=== PATIENT | female | born 2000 | race Caucasian/White ===

== ENCOUNTER 2024-03-12 19:18 | Emergency (ER) | payer MEDICAID, SELFPAY ==
[2024-03-12 19:19] VITALS: BP 122/74; PULSE 62; RESP 10; TEMP 36.1; O2SAT 100; BMI 22.0
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
--- NOTE | 2024-03-12 19:20 | CT_ITS ---
STUDY: CT CERVICAL SPINE WITHOUT CONTRAST REASON FOR EXAM: Female, 23 years old. Trauma RADIATION DOSAGE (If Supplied By Facility): CTDIvol = ( 13.41 ) mGy, DLP = ( 263.76 ) mGycm TECHNIQUE: High resolution transaxial imaging was performed without contrast material. Sagittal and coronal images were reconstructed. Individualized dose optimization techniques were used for this CT. COMPARISON: None FINDINGS: Exam is markedly limited by patient motion. Fractures cannot be excluded especially through C2. Malalignment is not excluded especially at C5-C6. Facet joints grossly intact at all levels. Normal curvature. Grossly intact craniocervical junction and C1-C2 articulation. No definite acute abnormality of the soft tissues. CT/Spine Cervical without Contras IMPRESSION: Markedly limited by patient motion. Neither fractures nor malalignment are excluded. Recommend repeat when patient can remain still. Electronically Signed: Noel Carr MD at 19:53 EDT ,
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
[2024-03-12 19:54] VITALS: BP 110/76; PULSE 102; RESP 22; O2SAT 97
[2024-03-12 19:55] LABS: Absolute Lymphocyte Count 6.58 X10^3/uL (0.83-4.51); Absolute Neutrophil Count 18.2 X10^3/uL (2.0-7.7); Basophil% 0.4 % (0-1); Eosinophil# 0.14 X10^3/uL; Eosinophils% 0.5 % (0-5); Hemoglobin 12.6 g/dL (12.0-15.0); Lymphocyte # 6.58 X10^3/ul (0.83-4.51); Lymphocyte % 24.5 % (19-41); Mean Corp Hgb Conc 33.2 g/dL (32-36); Mean Corpuscular Hgb 29.6 pg (27.0-32.0); Mean Corpuscular Volume 89.4 fL (81-99); Mean Platelet Vol. 9.2 fl (6.2-12.0); Monocyte# 0.87 X10^3/uL; Monocyte% 3.2 % (0-10); NRBC Flagged by Analyzer 0 % (0-5); Neutrophil % 67.9 % (47-70); POSITIVE DIFFERENTIAL YES; POSITIVE MORPHOLOGY YES; Platelet Count 517 K/mm3 (150-450); RBC Distribution Width CV 14.2 % (11.6-14.6); RBC Distribution Width SD 45.7 fl (35.1-43.9); Red Blood Count 4.25 M/mm3 (4.2-5.4); White Blood Count 26.8 K/mm3 (4.4-11.0)
[2024-03-12 19:58] LABS: Differential Indicated SCAN CRITERIA MET; Internal QC Validated? YES +Cl - CLEAR BKGD; Pregnancy, Serum, hCG Quali. NEGATIVE Negative
[2024-03-12] MEDS: Diphth,Pertuss(Acell),Tet Vac 0.5 ML Vial IM (19:58)
[2024-03-12] MEDS: Midazolam 2 MG/2 ML Syringe IV (19:58)
[2024-03-12] MEDS: fentaNYL 100 MCG/2 ML Ampul 50 MCG IV (19:59)
[2024-03-12 20:05] LABS: Anion Gap 12 (5-15); BUN 6 mg/dL (7-18); BUN/Creat Ratio 7.7 RATIO (10-20); Calcium,Total 9.8 mg/dL (8.5-10.1); Chloride 111 mmol/L (98-107); Creatinine, Serum 0.78 mg/dL (0.55-1.02); EST Glomerular Filtration Rate 97 mL/min (>60); Est Glom Filt Rate - Afr Amer 118 mL/min (>60); Estimated Creatinine Clearance 100.94 ml/min; Glucose 109 mg/dL (74-106); Potassium 3.1 mmol/L (3.5-5.1); Sodium Level 141 mmol/L (136-145)
[2024-03-12 20:09] VITALS: BP 124/87; PULSE 89; RESP 16; TEMP 36.6; O2SAT 100
[2024-03-12 20:30] LABS: Differential Comment SCANNED
== END 2024-03-12 20:04 | disposition short-term general hospital (02) ==
LOC: ED 19:27
PROVIDERS: Emergency Provider Emergency Medicine; Visit Provider Emergency Medicine
DX: S32.029A Unspecified fracture of second lumbar vertebra, initial encounter for closed fracture (principal); S32.039A Unspecified fracture of third lumbar vertebra, initial encounter for closed fracture; S32.592A Other specified fracture of left pubis, initial encounter for closed fracture; S01.21XA Laceration without foreign body of nose, initial encounter; S06.0X9A Concussion with loss of consciousness of unspecified duration, initial encounter; S13.160A Subluxation of C5/C6 cervical vertebrae, initial encounter; S01.81XA Laceration without foreign body of other part of head, initial encounter; N32.89 Other specified disorders of bladder; V48.5XXA Car driver injured in noncollision transport accident in traffic accident, initial encounter; Y92.410 Unspecified street and highway as the place of occurrence of the external cause; Z23 Encounter for immunization
CPT/HCPCS: 70450; 71250; 72125; 74176; 80048; 80320; 84703; 85025; 90471; 90715; 93005; 99285; J7030; A4216; G0480